=== PATIENT | female | born 1995 ===

== ENCOUNTER 2022-10-03 18:49 | Emergency (ER) | payer OTHER ==
[~2022-10-03] VITALS: Ht 160 cm; Wt 54.4 kg
== END 2022-10-04 00:06 | disposition home or self-care (01) ==
LOC: ER 18:49
DX: O21.0 Mild hyperemesis gravidarum (principal); Z3A.08 8 weeks gestation of pregnancy

== ENCOUNTER 2022-11-01 11:55 | Outpatient (CLI) | payer OTHER | END 2022-11-01 13:25 | disposition home or self-care (01) | LOC: PRENATAL 11:55 | PROVIDERS: ATTEND Obstetrics & Gynecology Maternal & Fetal Medicine | DX: O36.80X0 Pregnancy with inconclusive fetal viability, not applicable or unspecified (principal); Z3A.13 13 weeks gestation of pregnancy ==

== ENCOUNTER 2022-12-19 13:51 | Outpatient (CLI) | payer OTHER | END 2022-12-19 16:13 | disposition home or self-care (01) | LOC: PRENATAL 13:51 | PROVIDERS: ATTEND Obstetrics & Gynecology Maternal & Fetal Medicine | DX: O35.9XX0 Maternal care for (suspected) fetal abnormality and damage, unspecified, not applicable or unspecified (principal); O35.3XX0 Maternal care for (suspected) damage to fetus from viral disease in mother, not applicable or unspecified; Z3A.19 19 weeks gestation of pregnancy ==

== ENCOUNTER 2022-12-28 11:00 | Outpatient (CLI) | payer OTHER ==
[~2022-12-28] VITALS: Ht 160 cm; Wt 59.0 kg
[2022-12-28] MEDS ORDERED: FOLIC ACID0.8 M1 PO (11:15)
[2022-12-28] MEDS ORDERED: PRENATAL CAPLE1 EAC1 PO (11:15)
== END 2022-12-29 12:47 | disposition home or self-care (01) ==
LOC: OBS/DEL 11:00
PROVIDERS: ATTEND Obstetrics & Gynecology
DX: O26.892 Other specified pregnancy related conditions, second trimester (principal); R10.2 Pelvic and perineal pain; Z3A.21 21 weeks gestation of pregnancy

== ENCOUNTER → 2022-12-28 | Emergency (ER) | payer OTHER ==
[~2022-12-28] MED LIST: FOLIC ACID0.8 M1 PO; PRENATAL CAPLE1 EAC1 PO
== END | disposition home or self-care (01) ==
LOC: ER 09:15
DX: O26.892 Other specified pregnancy related conditions, second trimester (principal); R10.2 Pelvic and perineal pain; Z3A.21 21 weeks gestation of pregnancy

== ENCOUNTER 2023-03-20 13:59 | Outpatient (CLI) | payer OTHER | END 2023-03-20 15:22 | disposition home or self-care (01) | LOC: PRENATAL 13:59 | PROVIDERS: ATTEND Obstetrics & Gynecology Maternal & Fetal Medicine | DX: O26.849 Uterine size-date discrepancy, unspecified trimester (principal); O36.8199 Decreased fetal movements, unspecified trimester, other fetus; Z3A.32 32 weeks gestation of pregnancy ==

== ENCOUNTER 2023-04-28 15:19 | Inpatient (IN) | payer OTHER ==
[~2023-04-28] VITALS: Ht 160 cm; Wt 67.6 kg
== END 2023-05-11 13:41 | disposition home or self-care (01) | DRG 807 ==
LOC: LDR 05-09 06:43 → OB/GYN 05-09 06:43
PROVIDERS: ADMIT Obstetrics & Gynecology; ATTEND Obstetrics & Gynecology
PROC: 10E0XZZ Delivery of Products of Conception, External Approach (ICD-10-PCS; principal; 2023-05-09)
PROC: 4A1HXCZ Monitoring of Products of Conception, Cardiac Rate, External Approach (ICD-10-PCS; 2023-05-09)
DX: O80 Encounter for full-term uncomplicated delivery (principal); Z37.0 Single live birth; Z3A.40 40 weeks gestation of pregnancy; Z20.822 Contact with and (suspected) exposure to COVID-19